=== PATIENT | female | born 1990 | race Asian ===

== ENCOUNTER 2019-06-04 19:19 | Emergency (ER) | payer OTHER ==
[~2019-06-04] VITALS: Ht 157.5 cm; Wt 49.0 kg
[2019-06-04 19:27] VITALS: Ht 157.5 cm; Wt 49.0 kg
[2019-06-04 20:52] LABS: BASOPHIL % 1.1 % (0-2); PLATELET COUNT 331 x10^3mcL (130-400); RED CELL DISTRIBUTION WIDTH 12.5 % (11.5-14.5)
[2019-06-04 20:58] LABS: CARBON DIOXIDE 28.1 mmol/L (21-32); CHLORIDE SERUM 104 mmol/L (98-107); CREATININE SERUM 0.6 mg/dL (0.6-1.0); GFR1 > 60 mL/min; GLUCOSE SERUM 88 mg/dL (74-106); POTASSIUM SERUM 4.3 mmol/L (3.5-5.1); SODIUM SERUM 141 mmol/L (136-145)
[2019-06-04 21:03] LABS: ALBUMIN 3.8 g/dL (3.4-5.0); ALKALINE PHOSPHATASE 79 U/L (46-116); ALT/SGPT 13 U/L (14-59); AST/SGOT 14 U/L (15-37); BILIRUBIN TOTAL 0.3 mg/dL (0.20-1.00)
[2019-06-04 21:10] LABS: TOTAL PROTEIN, SERUM 8.4 g/dL (6.4-8.2)
[2019-06-04 22:35] VITALS: BP 118/78
== END 2019-06-04 22:35 | disposition home or self-care (01) ==
LOC: ED 19:19
PROVIDERS: Emergency Medicine
DX: O03.9 Complete or unspecified spontaneous abortion without complication (principal)
CPT/HCPCS: 36415